=== PATIENT | female | born 1975 | race African-American/Black ===

== ENCOUNTER 2020-11-19 16:03 | Outpatient (REF) | payer OTHER, SELFPAY | END 2020-11-19 16:04 | disposition home or self-care (01) | LOC: HO.LAB 16:03 | PROVIDERS: Visit Provider Internal Medicine | DX: Z20.822 Contact with and (suspected) exposure to COVID-19 (principal) | CPT/HCPCS: 36415; C9803; U0003 ==

== ENCOUNTER 2021-11-05 09:57 | Outpatient (REF) | payer OTHER, SELFPAY ==
[2021-11-05 10:43] LABS: Binax Internal Control QC Valid; Binax Now Covid-19 Ag Positive (Negative)
== END 2021-11-05 09:58 | disposition home or self-care (01) ==
LOC: HO.LAB 09:57
PROVIDERS: Visit Provider Internal Medicine
DX: Z20.822 Contact with and (suspected) exposure to COVID-19 (principal)
CPT/HCPCS: C9803

== ENCOUNTER → 2021-12-26 12:54 | Outpatient (BNVA) | payer OTHER, SELFPAY | PROVIDERS: Visit Provider Physician Assistant Medical | DX: S80.861A Insect bite (nonvenomous), right lower leg, initial encounter (principal); W57.XXXA Bitten or stung by nonvenomous insect and other nonvenomous arthropods, initial encounter | CPT/HCPCS: 99203 ==

== ENCOUNTER → 2021-12-30 14:45 | Outpatient (BNVA) | payer OTHER, SELFPAY | PROVIDERS: Visit Provider Physician Assistant Medical | DX: S80.861A Insect bite (nonvenomous), right lower leg, initial encounter (principal); L03.115 Cellulitis of right lower limb; W57.XXXA Bitten or stung by nonvenomous insect and other nonvenomous arthropods, initial encounter | CPT/HCPCS: 99213 ==

== ENCOUNTER → 2024-01-18 10:46 | Outpatient (BNVA) | payer OTHER, SELFPAY | PROVIDERS: Visit Provider Physician Assistant Medical | DX: S46.811A Strain of other muscles, fascia and tendons at shoulder and upper arm level, right arm, initial encounter (principal); S16.1XXA Strain of muscle, fascia and tendon at neck level, initial encounter; X50.0XXA Overexertion from strenuous movement or load, initial encounter | CPT/HCPCS: 99202 ==

== ENCOUNTER → 2024-02-04 10:06 | Outpatient (BNVA) | payer OTHER, SELFPAY | PROVIDERS: Visit Provider Physician Assistant Medical | DX: S46.811D Strain of other muscles, fascia and tendons at shoulder and upper arm level, right arm, subsequent encounter (principal); S16.1XXD Strain of muscle, fascia and tendon at neck level, subsequent encounter; X50.0XXD Overexertion from strenuous movement or load, subsequent encounter | CPT/HCPCS: 99213 ==

== ENCOUNTER → 2024-02-18 10:50 | Outpatient (BNVA) | payer OTHER, SELFPAY | PROVIDERS: Visit Provider Physician Assistant | DX: S46.811D Strain of other muscles, fascia and tendons at shoulder and upper arm level, right arm, subsequent encounter (principal); S16.1XXD Strain of muscle, fascia and tendon at neck level, subsequent encounter; X50.0XXD Overexertion from strenuous movement or load, subsequent encounter | CPT/HCPCS: 99213 ==

== ENCOUNTER → 2024-03-14 13:16 | Outpatient (BNVA) | payer OTHER, SELFPAY | PROVIDERS: Visit Provider Physician Assistant Medical | DX: S46.811D Strain of other muscles, fascia and tendons at shoulder and upper arm level, right arm, subsequent encounter (principal); S16.1XXD Strain of muscle, fascia and tendon at neck level, subsequent encounter; X50.0XXD Overexertion from strenuous movement or load, subsequent encounter | CPT/HCPCS: 99213 ==

== ENCOUNTER 2025-08-10 13:01 | Outpatient (AMB) | payer BC, SELFPAY ==
--- NOTE | 2025-08-10 13:19 | A.OFFPC_ITS ---
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 She is transferring from [place]. She has a hx of headaches.. She has a list of concerns today. Neuro: she states that has had headaches x 5 years. She states that it is becoming more persistent and usually unilateral. She is getting headaches almost weekly lasting for up to 3 days. She uses otc meds without improvement. She did tell her pcp and denies any known work up. She is overdue for eye exam but booked on the 08/24 and happened last year which was normal. She does sometimes wake up with the headaches. She does feel tired. reports apnea and snoring. CV: Blood pressure today in the office is 112/82. GI: she states that when she eats she gets pain and nausea. She is s/p c holesectomy. She saw a GI doc at [facility] and states she had a double endoscopy earlier this year and was dx with h pylori. She was treated but never retested and states still has sx. Msk: right thumb has been painful x 8 months. If feels stiff and swollen at the right first mcp. No trauma. Right-hand dominant. General: She is working on diet and weight loss but struggling losing weight. Would like to see a quartz miner. Not interested in a GLP 1. 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, follows with [facility] Mammogram: due soon Colonoscopy: utd 2024, due in 2034 Family history: mother had liver ca, father heart disease, brother has dialysis [facility] Medical History (Updated 08/10/25 @ 14:15 by Michelle Patrick PA-C) No known health problems Surgical History (Updated 08/10/25 @ 13:30 by Bud Luciano MA) History of cholecystectomy H/O section Family History (Updated 08/10/25 @ 13:41 by Bud Luciano MA) Mother Asthma Father Asthma Hypertension Cardiovascular disease Social History (Updated 08/10/25 @ 13:31 by Bud Luciano MA) Housing: House Alcohol intake: never Patient Tobacco Use Status: Never used Tobacco e-Cigarette/Vaping Use: Never Used Second Hand Smoke Exposure: No Use of substances other than those prescribed or required for medical reasons: No service: No Current occupational status: employed 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 1. Little interest or pleasure in doing things: several days 2. Feeling down, depressed, or hopeless: several days 3. Trouble falling or staying asleep, or sleeping too much: several days 4. Feeling tired or having little energy: several days 5. Poor appetite or overeating: more than half the days 6. Feeling bad about yourself - or that you are a failure or have let yourself or your family down: several days 7. Trouble concentrating on things, such as reading the newspaper or watching television: not at all 8. Moving or speaking so slowly that other people could have noticed. Or the opposite - being so fidgety or restless that you have been moving around a lot more than usual: several days 9. Thoughts that you would be better off or of hurting yourself in some way: not at all Total score: 8 Depression Screening Interpretation: Positive Depression Screening Follow-up: Existing condition and Follow-up Visit Requested Depression Screening Done: Yes 11076 - PHQ-9 Billing: Yes Source: Developed by Drs. Blaise Vargas, Lexi Pena, Jeff Fried and colleagues, with an educational gen from [employer]. Thrive Questionnaire Date Thrive assessed: 08/07/25 I am a: Patient What is your living situation today?: I have a steady place to live Within the past 12 months, did the food you bought not last and you didn't have the money to get more?: Sometimes True Within the past 12 months, did you worry whether your food would run out before you got money to buy more?: I choose not to answer this question Do you have trouble paying for medicines?: I choose not to answer this question Do you have trouble getting transportation to medical appointments?: No Do you have trouble paying your heating and electricity bill?: Yes Do you have trouble taking care of your child, family member or friend?: No Do you have trouble with day-to-day activities such as bathing, preparing meals, shopping, managing finances, etc.?: No Are you currently unemployed and looking for a job?: No Are you interested in more education?: No Please select the resources that you would like help with: None Currently or been in a relationship where the following occur: No concerns reported THRIVE Score: 2 AUDIT C Alcohol Use Questionnaire (AUDIT-C) 1. How often do you have a drink containing alcohol?: Never 3. How often do you have six or more drinks on one occasion?: Never Total Score: 0 Score Reviewed/Action Taken: Yes NAVI-7 AMB Questionnaire NAVI-7 Date NAVI - 7 assessed: 08/10/25 Feeling nervous, anxious, or on edge: 0 = Not at all Not being able to stop or control worryin = Not at all Worrying too much about different things: 0 = Not at all Trouble relaxin = Not at all Being so restless that it is hard to sit still: 0 = Not at all Becoming easily annoyed or irritable: 0 = Not at all Feeling afraid as if something awful might happen: 0 = Not at all Total NAVI-7 score (0-4 normal; 5-9 mild; 10-14 moderate; 15-21 severe): 0 Source: Developed by Drs. Blaise Vargas, Lexi Pena, Jeff Fried and colleagues, with an educational gen from [employer]. NAVI-7 Assessment Billing NAVI-7 Assessment Tool: NAVI-7 Assessment 79101 Physical exam (Primary Care) Vital Signs: Last Vital Signs Temp 98 F 08/10/25 13:34 Pulse 85 08/10/25 13:34 Resp 18 08/10/25 13:34 BP 112/82 08/10/25 13:34 Pulse Ox 99 08/10/25 13:34 Oxygen Delivery Method Room Air 08/10/25 13:34 BMI result Body Mass Index 45.3 Tobacco/Smoking Status: Tobacco use Status Tobacco use date assessed 08/10/25 08/10/25 13:33 Patient Tobacco Use Status Never used Tobacco 08/10/25 13:31 e-Cigarette/Vaping Use Never Used 08/10/25 13:33 PHQ-9: PHQ-9 Score PHQ-9: Total score 8 08/10/25 13:33 Depression Screening Interpretation: Positive Depression Screening Follow-up: Existing condition and Follow-up Visit Requested Thrive Assessment: Date of Thrive Assessment Date Thrive assessed 08/07/25 08/10/25 13:20 Currently or been in a relationship where the following occur: No concerns reported Const Orientation/consciousness: patient oriented x3 HENMT Ears: hearing grossly normal bilaterally Neck Thyroid: Thyroid normal Lymphatic: no lymphadenopathy noted Resp Auscultation: clear to auscultation bilaterally Cardio Rate: regular rate Rhythm: regular rhythm Heart sounds: S1 normal heart sound present and S2 normal heart sound present GI Inspection: Yes normal to inspection Palpation (GI): Soft to palpation and Other GI palpation findings present (nontender, no cva tenderness) Auscultation: normoactive bowel sounds Rectal Exam - Female: deferred Skin General skin exam: no rashes or lesions noted Neuro General: patient oriented x3, gait normal and no focal motor deficits Coding Level of Care Code New Pt Level 5 (25653) Complex EM visit Add On G2211 Diagnoses Helicobacter pylori (H. pylori) A04.8 GERD (gastroesophageal reflux disease) K21.9 Pain of right thumb M79.644 Urinary incontinence R32 New persistent daily headache G44.52 Witnessed apneic spells R06.81 Severe obesity (BMI >= 40) E66.01 Additional Codes NAVI-7 Assessment Billing - NAVI-7 Assessment Tool: NAVI-7 Assessment 86032 ([id number]) PHQ-9 - 75694 - PHQ-9 Billing: Yes ([id number]) Assessment & Plan Assessment & Plan (1) Helicobacter pylori (H. pylori): Code(s): A04.8 - Other specified bacterial intestinal infections Category: Medical Plan: Advised to follow up with GI (2) GERD (gastroesophageal reflux disease): Code(s): K21.9 - Gastro-esophageal reflux disease without esophagitis Category: Medical Plan: As above (3) Pain of right thumb: Code(s): M79.644 - Pain in right finger(s) Category: Medical Plan: Diclofenac gel ordered Labs ordered and imaging We will follow up pending test results (4) Urinary incontinence: Code(s): R32 - Unspecified urinary incontinence Category: Medical Plan: Referral to Urogynecology (5) New persistent daily headache: Code(s): G44.52 - New daily persistent headache (NDPH) Category: Medical Plan: Discussed sounds suspicious for sleep apnea Sleep study ordered MRI ordered Labs ordered (6) Witnessed apneic spells: Code(s): R06.81 - Apnea, not elsewhere classified Category: Medical Plan: As above (7) Severe obesity (BMI >= 40): Code(s): E66.01 - Morbid (severe) obesity due to excess calories Category: Medical Plan: Referral to quartz miner Plan Mammogram ordered Referral to quartz miner 70 minutes spent today in [id number] time reviewing a list of her concerns and formulating a plan. Orders: Orders XR finger RT min 2V Today M79.644 - Pain in right finger(s) TSH reflex Free T4 Today A04.8 - Other specified bacterial intestinal infections, G44.52 - New daily persistent headache (NDPH), K21.9 - Gastro- esophageal reflux disease without esophagitis, M79.644 - Pain in right finger(s), R32 - Unspecified urinary incontinence MM screening mammo BI Today Z12.31 - Encounter for screening mammogram for malignant neoplasm of breast MR head/brain wo con Today G44.52 - New daily persistent headache (NDPH) Complete Blood Count Auto Diff Today A04.8 - Other specified bacterial intestinal infections, G44.52 - New daily persistent headache (NDPH), K21.9 - Gastro-esophageal reflux disease without esophagitis, M79.644 - Pain in right finger(s), R32 - Unspecified urinary incontinence Comprehensive [place]. Panel Fast Today A04.8 - Other specified bacterial intestinal infections, G44.52 - New daily persistent headache (NDPH), K21.9 - Gastro-esophageal reflux disease without esophagitis, M79.644 - Pain in right finger(s), R32 - Unspecified urinary incontinence Hemoglobin A1c Today A04.8 - Other specified bacterial intestinal infections, G44.52 - New daily persistent headache (NDPH), K21.9 - Gastro-esophageal reflux disease without esophagitis, M79.644 - Pain in right finger(s), R32 - Unspecified urinary incontinence, R73.01 - Impaired fasting glucose Lipid Panel Today A04.8 - Other specified bacterial intestinal infections, G44.52 - New daily persistent headache (NDPH), K21.9 - Gastro-esophageal reflux disease without esophagitis, M79.644 - Pain in right finger(s), R32 - Unspecified urinary incontinence UA CC w/rflx Micro + Cult Today A04.8 - Other specified bacterial intestinal infections, G44.52 - New daily persistent headache (NDPH), K21.9 - Gastro- esophageal reflux disease without esophagitis, M79.644 - Pain in right finger(s), R30.0 - Dysuria, R32 - Unspecified urinary incontinence Microalbumin, Random (w Creat) Today A04.8 - Other specified bacterial intestinal infections, G44.52 - New daily persistent headache (NDPH), K21.9 - Gastro-esophageal reflux disease without esophagitis, M79.644 - Pain in right finger(s), R32 - Unspecified urinary incontinence LUCITA Reflex Titer and Pattern Today A04.8 - Other specified bacterial intestinal infections, G44.52 - New daily persistent headache (NDPH), K21.9 - Gastro- esophageal reflux disease without esophagitis, M79.644 - Pain in right finger(s), R32 - Unspecified urinary incontinence Erythrocyte Sedimentation Rate Today A04.8 - Other specified bacterial intestinal infections, G44.52 - New daily persistent headache (NDPH), K21.9 - Gastro-esophageal reflux disease without esophagitis, M79.644 - Pain in right finger(s), R32 - Unspecified urinary incontinence Lyme IgG/IgM w/reflex to WB Today A04.8 - Other specified bacterial intestinal infections, G44.52 - New daily persistent headache (NDPH), K21.9 - Gastro- esophageal reflux disease without esophagitis, M79.644 - Pain in right finger(s), R32 - Unspecified urinary incontinence Rheumatoid Factor Today A04.8 - Other specified bacterial intestinal infect ions, G44.52 - New daily persistent headache (NDPH), K21.9 - Gastro-esophageal reflux disease without esophagitis, M79.644 - Pain in right finger(s), R32 - Unspecified urinary incontinence RT home sleep study Today G44.52 - New daily persistent headache (NDPH), R06.81 - Apnea, not elsewhere classified Referrals Gastroenterology Referral A04.8 - Other specified bacterial intestinal infections, K21.9 - Gastro-esophageal reflux disease without esophagitis Urogynecology Referral R32 - Unspecified urinary incontinence [employer] Worker Nutrition Referral E66.9 - Obesity, unspecified Medications: New ondansetron HCl 4 mg PO Q8H PRN 30 tabs 0RF nausea and vomiting diclofenac sodium 1% apply to single knee, ankle, foot; for foot includes sole/toes/top of foot 4 grams topical QID 100 grams 0RF
[2025-08-10 13:34] VITALS: BP 112/82; PULSE 85; RESP 18; TEMP 36.6; O2SAT 99; BMI 45.3
--- OUTSIDE RECORDS SUMMARY | 2025-08-10 16:15 | XMS_ITS | Clinical Summary ---
Author Organization [facility] [address] [place] [address] [place] [address] Phone Care Team Providers Care Banking Teacher Name Role Phone Gloria Mendes MD Primary Care Provider [phone] Allergies No known active allergies Medications No known medications Active Problems Problem Noted Date Diagnosed Date CALLE (headache) 03/03/2025 Prediabetes 02/07/2025 Thyroid nodule 10/08/2018 Thyromegaly 10/08/2018 Edema 03/28/2010 CTS (carpal tunnel syndrome) 12/18/2009 Obesity, unspecified 10/11/2008 Resolved Problems Problem Noted Date Diagnosed Date Resolved Date Irregular menses 09/03/2020 06/21/2025 Overview (07/29/2024): Last Assessment & Plan: Discussed causes of irregular menses, including perimenopause as the patient is 45yo and complaining of symptoms of hot flashes and night sweats. Encouraged patient to continue monitoring cycles. TSH, prolactin, FSH and LH ordered. Pelvic pain 09/03/2020 06/21/2025 Overview (07/29/2024): Last Assessment & Plan: Pain now resolved. Discussed causes of pelvic pain. As the pain has resolved and not returned it was likely an isolated event, however encouraged her to to monitor symtpoms and if symptoms return I will order a pelvic ultrasound for further evaluation. Encounters Date Type Department Care Team Description 06/22/2025 9:45 AM EDT Office Visit Adult Medicine [facility] [address] [place] [address] Juany Lofton MD Acute UTI (Primary Dx); Foul smelling urine 06/21/2025 Telephone Adult Medicine [address] [phone] Gloria Mendes MD from Last 3 Months Immunizations Immunization Administration Dates Next Due Influenza Quadravalent, MDCK , 0.5ml, preservative free (Flucelvax) 6mo and older 12/23/2021,09/07/2020 Pfizer SARS-CoV-2 COVID-19, mRNA, LNP-S, preservative free 04/07/2022,02/08/2021 Td Tetanus diptheria (Tdvax) 7yo and older 12/21 Tdap Tetanus diptheria acell ular pertussis (Boostrix; Adacel) 7yo and older 03/11/2017 Surgical History Surgery Date Site/Laterality Comments SECTION 01/13/1996 TUBAL LIGATION 1998 CHOLECYSTECTOMY 2011 BREAST BIOPSY 11/20/2015 lt. breast bx-benign Medical History Medical History Date Comments Obesity Migraines Family History Medical History Relation Name Comments Thyroid disease Daughter uknown detai ls Coronary artery disease Father from heart failure , HTN, colon cancer, prediabetes Other: Other Mother cirrhosis 60 Breast cancer Neg Hx Ovarian cancer Neg Hx Uterine cancer Neg Hx Relation Name Status Comments Daughter Father Mother Other Social History Tobacco Use Types Packs/Day Years Used Date Smoking Tobacco: Never Smokeless Tobacco: Never Tobacco Cessation:Counseling Given: Not Answered Alcohol Use Standard Drinks/Week Comments No 0 (1 standard drink = 0.6 oz pur e alcohol) Interpersonal Safety Answer Date Record ed Physical Abuse Unrecognized value 03/03/2025 Verbal Abuse Unrecognized value 03/03/2025 Comments No Sex and Gender Information Value Date Recorded Sex Assigned at Female 01/26/2025 11:49 AM EDT Legal Sex Female 1:00 AM EST Gender Identity Female 01/26/2025 11:49 AM EDT Sexual Orientation Straight 01/26/2025 11 :49 AM EDT Obstetrics History Para Term AB IAB SAB Ectopic Multiple Livin g Live Births 3 3 3 3 3 Date Outcome GA Total Labor Labor/2nd/3rd Weight Sex Type Anes PTL Charlotte A1 A5 Name Clin 994 Term F Vag-S pont Gordo cleaning Mandy Delivery Location:[facility] Comments:uncompl 996 Term F CS-Un spec Gordo Camposrdel is Delivery Location:[place] Comments:CPD 999 Term M Gordo Marest o Delivery Location:[place] Comments:uncompl Last Filed Vital Signs Vital Sign Reading Time Taken Comments Blood Pressure 128/80 06/22/2025 9:51 AM EDT Pulse 86 06/22/2025 9:51 AM EDT Temperature 35.8 C (96.5 F) 06/22/2025 9:51 AM EDT Respiratory Rate 18 06/22/2025 9:51 AM EDT Oxygen Saturation 99% 06/22/2025 9:51 AM EDT Inhaled Oxygen Concentration - - Weight 124 kg (272 lb 14.4 oz) 06/22/2025 9:51 A M EDT Height 162.6 cm (5' 4 ) 06/22/2025 9:51 AM EDT Body Mass Index 46.84 06/22/2025 9:51 AM EDT Plan of Treatment Health Maintenance Due Date Last Done Comments Hepatitis B Vaccines (1 of 3 - 19+ 3-dose series) 1994 HIV Screening 10/04/2022 Hepatitis C Screening 10/04/2022 Social Influencers of Health Screening 10/04/2022 Depression Screening 10/26/2024 Influenza Vaccine (#1) 2025 12/23/2021, 2019 Pneumococcal Vaccine: 50+ Years (1 of 1 - PCV) 2025 RSV Immunization Adult Patients (1 - Risk 50-74 years 1-dose series) 2025 Zoster Vaccines (1 of 2) 2025 Breast Cancer Screening 03/05/2026 03/05/20 24, 03/05/2024, 01/31/2023, Additional history exists DTaP,Tdap,and Td Vaccines (3 - Td or Tdap) 03/11/2027 03/11/2017, 12/21/2003 Cervical Cancer Screening: HPV 02/01/2030 02/01/2025, 09/03/2020 Cervical Cancer Screening: Pap Smear 02/01/2030 02/01/2025, 02/01/2025, 09/03/2020, Additional history exists Cholesterol Screening (Lipid Panel) 02/06/2030 02/06/2025, 06/02/2023 Colorectal Cancer Screening: Colonoscopy 03/03/2035 03/03/2025 COVID-19 Vaccine Discontinued 04/07/2022, , 01/18/2021 HIB Vaccines Aged Out No longer eligi ble based on patient's age to complete this topic HPV Vaccines Aged Out No longer eligi ble based on patient's age to complete this topic Hepatitis A Vaccines Aged Out No long er eligible based on patient's age to complete this topic IPV Vaccines Aged Out No longer eligi ble based on patient's age to complete this topic MMR Vaccines Aged Out No longer eligi ble based on patient's age to complete this topic Meningococcal ACWY Vaccine Aged Out N o longer eligible based on patient's age to complete this topic Meningococcal B Vaccine Aged Out No l onger eligible based on patient's age to complete this topic RSV Immunization Patients Under 20 months Aged Out No longer eligible based on patient's age to complete this topic Varicella Vaccines Aged Out No longer eligible based on patient's age to complete this topic Procedures Procedure Name Priority Date/Time Associated Diagnosis Comments POC URINE NON-AUTO W/O MICRO Routine 06/22/2025 10:06 AM EDT Acute UTI Foul smelling urine CULTURE URINE Routine 06/22/2025 10:04 AM EDT Acute UTI Foul smelling urine COLONOSCOPY Routine 03/03/2025 12:39 PM EDT Screening for colorectal cancer Epigastric pain Left lower quadrant abdominal pain LIPID PANEL WITH REFLEX TO DIRECT LDL Routine 02/06/2025 9:39 AM EDT Routine physical examination HPV WITH REFLEX GENOTYPE Routine 02/01/2025 2:46 PM EDT Encounter for annual routine gynecological examination SCREENING MAMMOGRAPHY BI 2-VIEW BREAST INC CAD Routine 03/05/2024 12:58 PM EDT Encounter for screening mammogram for malignant neoplasm of breast from Last 3 Months or Most Recently Relevant to Health Maintenance Results * (ABNORMAL) POC Urine Non-Auto W/O Micro (06/22/2025 10:06 AM EDT) Glucose UA POC Negative Negative, Trace mg/dL Leukocytes UA POC 3+(A) Negative Nitrite UA POC Positive(A) Negative Urobilinogen UA POC 0.2 E.U./dL 0.2 E.U./dL, 1.0 E.U./dL, 8 , Unable to interpret due to interfering substances mg/dL Protein UA POC Negative Negative mg/dL PH UA POC 5.0 Blood UA POC Negative Negative Specific [place] UA POC <=1.005 Ketones UA POC Negative Negative Bilirubin UA POC Negative Negative Urine Urine specimen obtained by clean catch procedure / Unknown 06/22/2025 10:06 AM EDT Juany Lofton MD POINT OF CARE TEST ENTER/EDIT OR DERABLES Final Result * (ABNORMAL) Culture urine (06/22/2025 10:04 AM EDT) Culture, Urine >=100,000 CFU/mL Escherichia coli(A) JULIA 06/24/2025 11:34 AM EDT [facility] Comment: This is an edited result. Previous organism was Gram negative bacilli on 06/23/2025 at 1159 EDT. Urine Urine specimen obtained by clean catch procedure / Unknown Non-blood Collection / Unknown 06/22/2025 10:04 AM EDT 06/22/2025 10:04 AM EDT Narrative Organism Antibiotic Method Susceptibility Escherichia coli Amoxicillin/Clavulanate JULIA 8 ug/ml: Susceptible Escherichia coli Ampicillin/Sulbactam JULIA <=2 ug/ml: Susceptible Escherichia coli Piperacillin/Tazobactam JULIA <=4 ug/ml: Susceptible Escherichia coli Cefazolin (Urine) JULIA <=1 ug/ml: Susceptible Escherichia coli Cefoxitin JULIA 16 ug/ml: Intermediate Escherichia coli Ceftazidime JULIA <=0.5 ug/ml: Susceptible Escherichia coli Ceftriaxone JULIA <=0.25 ug/ml: Susceptible Escherichia coli Cefepime JULIA <=0.12 ug/ml: Susceptible Escherichia coli Meropenem JULIA <=0.25 ug/ml: Susceptible Escherichia coli Amikacin JULIA 2 ug/ml: Susceptible Escherichia coli Gentamicin JULIA <=1 ug/ml: Susceptible Escherichia coli Ciprofloxacin JULIA <=0.06 ug/ml: Susceptible Escherichia coli Levofloxacin JULIA <=0.12 ug/ml: Susceptible Escherichia coli Nitrofurantoin JULIA 256 ug/ml: Resistant Escherichia coli Trimethoprim/Sulfamethoxazole JULIA <=20 ug/ml: Susceptible us Juany Lofton MD LAB MICROBIOLOGY - GENERAL ORDER MARY Final Result [facility] [address] [place] [address], * COLONOSCOPY Anesthesia - MAC; [facility] ENDOSCOPY (03/03/2025 12:39 PM EDT) Anatomical Region Laterality Modality Other 03/03/2025 12:2 6 PM EDT Impressions 03/03/2025 12:41 PM EDT - The examined portion of the ileum was normal. - Diverticulosis in the sigmoid colon. - The examination was otherwise normal on direct and retroflexion views. - No specimens collected. Recommendation: - Repeat colonoscopy in 10 years for screening purposes. Narrative 03/03/2025 12:41 PM EDT [facility] GI Patient Name: Lanette Up Procedure Date: 03/03/2025 12:26 PM Date of : 1975 Age: 49 Gender: Female Note Status: Finalized Attending MD: Charline Boswell MD, Procedure Date No Time: 03/03/2025 Procedure: Colonoscopy Indications: Screening for colorectal malignant neoplasm Providers: Charline Boswell MD Referring MD: Charline Boswell MD, Gloria Mendes MD Medicines: Propofol per Anesthesia Complications: No immediate complications. Estimated Blood Loss: Estimated blood loss: none. Procedure: Pre-Anesthesia Assessment: - ASA Grade Assessment: II - A patient with mild systemic disease. After I obtained informed consent, the scope was passed under direct vision. Throughout the procedure, the patient's blood pressure, pulse, and oxygen saturations were monitored continuously.The Colonoscope was introduced through the anus and advanced to the terminal ileum. The colonoscopy was performed without difficulty. The patient tolerated the procedure well. The quality of the bowel preparation was good. Findings: The perianal and digital rectal examinations were normal. The terminal ileum appeared normal. A few small-mouthed diverticula were found in the sigmoid colon. The exam was otherwise without abnormality on direct and retroflexion views. Procedure Code(s): --- Professional --- G0121, Colorectal cancer screening; colonoscopy on individual not meeting criteria for high risk Diagnosis Code(s): --- Professional --- Z12.11, Encounter for screening for malignant neoplasm of colon CPT copyright 2020 [employer]. All rights reserved. The codes documented in this report are preliminary and upon medical investigator review may be revised to meet current compliance requirements. Charline Boswell MD 03/03/2025 12:41:01 PM This report has been signed electronically.Charline Boswell MD Number of Addenda: 0 Note Initiated On: 03/03/2025 12:26 PM Scope In: Scope Out: Endoscopy Department at [facility] - [address] [place] [phone] Procedure Note Charline Boswell MD - 03/03/2025 [facility] GI Patient Name: Lanette Up Procedure Date: 03/03/2025 12:26 PM Date of : 1975 Age: 49 Gender: Female Note Status: Finalized Attending MD: Charline Boswell MD, Procedure Date No Time: 03/03/2025 Procedure: Colonoscopy Indications: Screening for colorectal malignant neoplasm Providers: Charline Boswell MD Referring MD: Charline Boswell MD, Gloria Mendes MD Medicines: Propofol per Anesthesia Complications: No immediate complications. Estimated Blood Loss: Estimated blood loss: none. Procedure: Pre-Anesthesia Assessment: - ASA Grade Assessment: II - A patient with mild systemic disease. After I obtained informed consent, the scope was passed under direct vision. Throughout theprocedure, the patient's blood pressure, pulse, and oxygen saturations were monitored continuously.The Colonoscope was introduced through the anus and advanced to the terminal ileum. The colonoscopy was performed without difficulty. The patient tolerated the procedure well. The quality of the bowel preparation was good. Findings: The perianal and digital rectal examinations were normal. The terminal ileum appeared normal. A few small-mouthed diverticula were found in the sigmoid colon. The exam was otherwise without abnormality ondirect and retroflexion views. Procedure Code(s): --- Professional --- G0121, Colorectal cancer screening; colonoscopy on individual not meeting criteria for high risk Diagnosis Code(s): --- Professional --- Z12.11, Encounter for screening for malignantneoplasm of colon CPT copyright 2020 [employer]. All rights reserved. The codes documented in this report are preliminary and upon medical investigator reviewmay be revised to meet current compliance requirements. Charline Boswell MD 03/03/2025 12:41:01 PM This report has been signed electronically.Charline Boswell MD Number of Addenda: 0 Note Initiated On: 03/03/2025 12:26 PM Scope In: Scope Out: Endoscopy Department at [facility] - [address] [place] [phone] IMPRESSION: - The examined portion of the ileum was normal. - Diverticulosis in the sigmoid colon. - The examination was otherwise normal on directand retroflexion views. - No specimens collected. Recommendation: - Repeat colonoscopy in 10 years for screening purposes. Charline Boswell MD GI~PROCEDURE ORDERABLES Final Result * Lipid panel with reflex to direct LDL (02/06/2025 9:39 AM EDT) Cholesterol 172 0 - 200 mg/dL LAB CHEMISTRY METHOD 02/06/2025 4:58 PM EDT [facility] Triglycerides 38 0 - 150 mg/dL LAB CHEMISTRY METHOD 02/06/2025 4:58 PM EDT [facility] HDL 71 >=40 mg/dL LAB CHEMISTRY METHOD 02/06/2025 4:58 PM EDT [facility] LDL Calculated 93 0 - 100 mg/dL LAB CHEMISTRY METHOD 02/06/2025 4:58 PM EDT [facility] VLDL Cholesterol Rey 7.6 mg/dL LAB CHEMISTRY METHOD 02/06/2025 4:58 PM EDT [facility] Non HDL Chol. (LDL+VLDL) 101 <145 mg/dL LAB CHEMISTRY METHOD 02/06/2025 4:58 PM EDT [facility] Chol/HDL Ratio 2.4 0.0 - 4.4 LAB CHEMISTRY METHOD 02/06/2025 4:58 PM EDT [facility] Blood Venous blood specimen / Unknown Venipuncture / Unknown 02/06/2025 9:39 AM EDT 02/06/2025 9:39 AM EDT Patrick ALBERTS LAB BLOOD ORDERABLES Final Res ult Performing Organization Address [facility]/ZIP Co de Phone Number [facility] [address] [place] [address], * HPV with reflex genotype (02/01/2025 2:46 PM EDT) HPV Negative Negative LAB MICROBIOLOGY METHOD 02/03/2025 12:59 PM EDT [facility] Brushing/Spatula Cervix uteri structure / Unknown 02/01/2025 2:46 PM EDT 02/03/2025 6:05 AM EDT Rob Rice CNM LAB MOLECULAR DIAGNOSTICS JOS HUSAIN Final Result Performing Organization Address City/[facility]/ZIP Co de Phone Number [facility] [address] [place] [address], [place] [phone] * SCREENING MAMMOGRAPHY BI 2-VIEW BREAST INC CAD (03/05/2024 12:58 PM EDT) Anatomical Region Laterality Modality Radiographic Kita ging 01/31/2023 11:3 6 AM EDT Narrative 03/07/2024 11:53 AM EDT This is a summary report. The complete report is available in the patient's medical record. If you cannot access the medical record, please contact the sending organization for a detailed fax or copy. Full field digital screening tomosynthesis mammography, reviewed with CAD and compared to previous. The breasts are composed of fatty and fibroglandular tissue. No suspicious mass, architectural distortion or suspicious calcifications are identified. IMPRESSION: : No mammographic evidence of malignancy. BIRADS 1-Negative; N. 5 year breast cancer risk assessment 1.1 % Lifetime breast cancer risk assessment 8.9 % Breast cancer risk category Low (<15%) Procedure Note Jesus Green MD - 06/13/2024 This is a summary report. The complete report is available in thepatient's medical record. If you cannot access the medical record, pleasecontact the sending organization for a detailed fax or copy. Full field digital screening tomosynthesis mammography, reviewed with CADand compared to previous. The breasts are composed of fatty andfibroglandular tissue. No suspicious mass, architectural distortion orsuspicious calcifications are identified. IMPRESSION: : No mammographic evidence of malignancy. BIRADS 1-Negative; N. 5 year breast cancer risk assessment 1.1 % Lifetime breast cancer risk assessment 8.9 % Breast cancer risk category Low (<15%) Gloria Mendes MD IMG XR PROCEDURES Final Result from Last 3 Months or Most Recently Relevant to Health Maintenance Insurance [facility] Care Teams Banking Teacher Relationship Specialty Start Date End Date Gloria Mendes MD [address] [place] [phone] [facility] - General 12/04/22
--- OUTSIDE RECORDS SUMMARY | 2025-08-10 16:15 | XMS_ITS ---
Author Name [facility] Organization Unknown Care Team Organization Name Specialty Phone Email [facility] Date [facility] 06/13/2024
== END 2025-08-10 14:47 | disposition home or self-care (01) ==
LOC: HO.HMCFM 13:01
PROVIDERS: PCP Physician Assistant; Visit Provider Physician Assistant
DX: A04.8 Other specified bacterial intestinal infections (principal); K21.9 Gastro-esophageal reflux disease without esophagitis; M79.644 Pain in right finger(s); R32 Unspecified urinary incontinence; G44.52 New daily persistent headache (NDPH); R06.81 Apnea, not elsewhere classified; E66.01 Morbid (severe) obesity due to excess calories

== ENCOUNTER → 2025-08-10 13:01 | Outpatient (BNVA) | payer BC, SELFPAY | PROVIDERS: PCP Physician Assistant; Visit Provider Physician Assistant | DX: K21.9 Gastro-esophageal reflux disease without esophagitis (principal); A04.8 Other specified bacterial intestinal infections; M79.644 Pain in right finger(s); R32 Unspecified urinary incontinence; G44.52 New daily persistent headache (NDPH); R06.81 Apnea, not elsewhere classified; E66.01 Morbid (severe) obesity due to excess calories; Z68.42 Body mass index [BMI] 45.0-49.9, adult | CPT/HCPCS: 96127 ==